=== PATIENT | female | born 2000 | race Caucasian/White ===

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

== ENCOUNTER 2020-03-29 21:01 | Outpatient (CLI) | payer MEDICAID, OTHER ==
[~2020-03-29] VITALS: Ht 166.4 cm; Wt 86.5 kg
[~2020-03-29 21:01] MED LIST: ADDE25CA PO; PROZ20CA11 PO
[2020-03-29 21:26] VITALS: BP 122/65
--- NOTE | 2020-03-29 22:23 | IPNPDOC ---
Text Note Date of Service The patient was seen on 03/29/20. NOTE Subjective: Ambrose is a 19-year-old female who is a at 30.1 weeks gestation with an MATHEUS of 06/06/20. She has OB care with [facility]. Unable to get OB records at this time due to phone outage-no fax. Patient reports her has been uncomplicated. 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 She presents to L&D tonight with complaints of right sided flank pain since 1899, which she said resolved after she arrived to the unit. She has had no pain in over an hour and half. She reports good activity. She denies vaginal bleeding, contractions, or leaking of fluid. She denies any abnormal vaginal discharge or vaginal itching. OB History: 04/21/2018: of stillbirth female at 34.4 weeks gestation due to cord accident weighting 5 lbs 15 oz. (Connor) Medical history: Hx of depression and anxiety-no medications-reports treated Family history: mother with HTN and maternal grandfather with Type I DM Surgical history: tonsillectomy Social history: single, with FOB. Lives in [place] but works at [employer] in [place]. Former smoker-quit October 2019. Denies history of drug or alcohol use or abuse during . Objective: VS and labs: see below. FHR 130, moderate variability, positive accelerations, no decelerations. Contractions: occasional. A+O x3. Respiratory: regular rate without use of accessory muscles. Abdomen: gravid and soft. No pain with palpation. Musculoskeletal: No CVA tenderness bilaterally. Normal gait. Assessment: IUP at 30.1 weeks gestation, resolved right sided flank pain, Category I FHR tracing Plan: Patient encouraged to follow-up with her OB for routine OB appointments. Discharged to home. Letter given to be out of work [facility]. Reviewed kick counts, labor signs, and danger signs to report. Encouraged to call OB with any changes. VS,Fishbone, I+O VS, Fishbone, I+O Vital Signs Date Time Temp Pulse Resp B/P (MAP) Pulse Ox O2 Delivery O2 Flow Rate FiO2 03/29/20 21:26 98.5 96 18 122/65 (84) TERI MONTERROSO CNM Mar 29, 2020 22:23
[2020-03-29 22:34] LABS: APPEARANCE, URINE CLEAR (CLEAR); BACTERIA, URINE AUTO NEGATIVE (NEGATIVE); BILIRUBIN, URINE AUTO NEGATIVE (NEGATIVE); BLOOD, URINE BLOOD NEGATIVE (NEGATIVE); COLOR, URINE STRAW (YELLOW); GLUCOSE, URINE (UA) AUTO NEGATIVE (NEGATIVE); KETONE, URINE AUTO 1+ mg/dL (NEGATIVE); LEUKOCYTE ESTERASE, URINE AUTO NEGATIVE (NEGATIVE); NITRITE, URINE AUTO NEGATIVE (NEGATIVE); PROTEIN, URINE AUTO NEGATIVE (NEGATIVE); RBC, URINE AUTO 0 /HPF (0-3); SPECIFIC GRAVITY URINE AUTO 1.008 (1.002-1.035); SQUAMOUS EPITHELIAL CELL UR AU 1 /HPF (0-6); UROBILINOGEN, URINE AUTO 0.2 mg/dL (0.0-2.0); WBC, URINE AUTO 2 /HPF (0-3)
== END 2020-03-29 23:00 | disposition home or self-care (01) ==
LOC: M LDO 21:01 → EEVIPCON 21:01 → M LDO 23:00
PROVIDERS: ATTEND Advanced Practice Midwife
DX: O26.893 Other specified pregnancy related conditions, third trimester (principal); Z3A.30 30 weeks gestation of pregnancy